=== PATIENT | male | born 1980 | race Caucasian/White ===

== ENCOUNTER 2022-02-05 06:16 | Day surgery (SDC) | payer BC ==
[~2022-02-05 06:16] MED LIST: Dextrose 5%-0.45% NaCl 1,000 ML IV SCH; Sodium Chloride 0.9% 10 ML Syringe FLUSH PRN; Sodium Chloride 0.9% 10 ML Syringe FLUSH SCH
[2022-02-05] MEDS ORDERED: fentaNYL 100 MCG/2 ML SDV IV ONE ×3 (06:17→07:52)
[2022-02-05] MEDS ORDERED: Midazolam 1 MG/ML 2 ML SDV IV ONE ×3 (06:17→07:54)
[2022-02-05] MEDS ORDERED: fentaNYL 100 MCG/2 ML SDV ONE (06:20)
[2022-02-05] MEDS ORDERED: Midazolam 1 MG/ML 2 ML SDV ONE (06:20)
== END 2022-02-05 10:10 | disposition home or self-care (01) ==
LOC: DL.ENDO 06:16
PROVIDERS: ATTEND Internal Medicine Gastroenterology
DX: K22.2 Esophageal obstruction (principal); F17.210 Nicotine dependence, cigarettes, uncomplicated; E66.09 Other obesity due to excess calories; E78.5 Hyperlipidemia, unspecified; R73.9 Hyperglycemia, unspecified; Z88.8 Allergy status to other drugs, medicaments and biological substances; Z01.812 Encounter for preprocedural laboratory examination; Z20.822 Contact with and (suspected) exposure to COVID-19; Z98.890 Other specified postprocedural states; Z68.41 Body mass index [BMI] 40.0-44.9, adult
CPT/HCPCS: 43239; 87077; 87635; J2250; J3010; J7042; U0002

== ENCOUNTER 2024-08-30 06:14 | Day surgery (SDC) | payer BC ==
[~2024-08-30 06:14] MED LIST changes: -Dextrose 5%-0.45% NaCl 1,000 ML IV SCH; +Midazolam 1 MG/ML 2 ML SDV IV ONE; +Midazolam 1 MG/ML 2 ML SDV ONE; -Sodium Chloride 0.9% 10 ML Syringe FLUSH PRN; -Sodium Chloride 0.9% 10 ML Syringe FLUSH SCH; +fentaNYL 100 MCG/2 ML SDV IV ONE; +fentaNYL 100 MCG/2 ML SDV ONE
[2024-08-30] MEDS: Dextrose 5%-0.45% NaCl 1,000 ML IV SCH (06:43)
[2024-08-30] MEDS: fentaNYL 100 MCG/2 ML SDV IV ONE ×2 (07:08→07:09)
[2024-08-30] MEDS: Midazolam 1 MG/ML 2 ML SDV IV ONE ×4 (07:09→07:14)
[2024-08-30] MEDS ORDERED: Midazolam 1 MG/ML 2 ML SDV ONE (07:24)
== END 2024-08-30 08:40 | disposition home or self-care (01) ==
LOC: DL.ENDO 06:14
PROVIDERS: ATTEND Internal Medicine Gastroenterology
DX: K29.50 Unspecified chronic gastritis without bleeding (principal); K22.2 Esophageal obstruction; D12.8 Benign neoplasm of rectum; K21.9 Gastro-esophageal reflux disease without esophagitis
CPT/HCPCS: 43239; J2250; J3010; J7799

== ENCOUNTER 2024-09-03 05:55 | Day surgery (SDC) | payer BC ==
[2024-09-03] MEDS: Dextrose 5%-0.45% NaCl 1,000 ML IV SCH (06:19)
[2024-09-03] MEDS ORDERED: fentaNYL 100 MCG/2 ML SDV ONE (06:21)
[2024-09-03] MEDS ORDERED: fentaNYL 100 MCG/2 ML SDV IV ONE (06:21)
[2024-09-03] MEDS ORDERED: Midazolam 1 MG/ML 2 ML SDV ONE (06:21)
[2024-09-03] MEDS ORDERED: Midazolam 1 MG/ML 2 ML SDV IV ONE (06:21)
[2024-09-03] MEDS: fentaNYL 100 MCG/2 ML SDV IV ONE ×2 (06:43→06:44)
[2024-09-03] MEDS: Midazolam 1 MG/ML 2 ML SDV IV ONE ×6 (06:44→06:52)
== END 2024-09-03 08:16 | disposition home or self-care (01) ==
LOC: DL.ENDO 05:55
PROVIDERS: ATTEND Internal Medicine Gastroenterology
DX: Z12.11 Encounter for screening for malignant neoplasm of colon (principal); D12.8 Benign neoplasm of rectum; K57.30 Diverticulosis of large intestine without perforation or abscess without bleeding; I10 Essential (primary) hypertension; E66.09 Other obesity due to excess calories; K21.9 Gastro-esophageal reflux disease without esophagitis; R79.89 Other specified abnormal findings of blood chemistry; F17.200 Nicotine dependence, unspecified, uncomplicated; Z68.41 Body mass index [BMI] 40.0-44.9, adult; Z88.8 Allergy status to other drugs, medicaments and biological substances
CPT/HCPCS: J2250; J3010; J7799